=== PATIENT | male | born 1935 | race Caucasian/White ===

== ENCOUNTER 2017-08-18 19:23 | Emergency (ER) | payer MEDICARE ==
--- NOTE | 2017-08-18 19:50 | EDM.PDOC ---
ED HPI GENERAL MEDICAL PROBLEM - General Chief Complaint: General Stated Complaint: FELL CHEST HEAD AND RT KNEE Time Seen by Provider: 08/18/17 19:23 Source of Information: Reports: Patient, Family (son) History Limitations: Reports: No Limitations - History of Present Illness INITIAL COMMENTS - FREE TEXT/NARRATIVE: 82 y.o.w.m came with his son the ED after he fell over an object at home onto his head, chest and right knee. No LOC. Pt is on Coumadin S/O cardiac bypass surgery. His INR level will be checked tomorrow. INR lefl was therapeutic since surgery. Pt denies chest pain/discomfort, noticed a minor bruise at his right anterior knee but is ambulating fine. He noticed a minor bruise at his right forehead. No other acute medical issue. BP 151/52 Pulse 65 RR 18 Pulse ox 99% on RA Temp 36.8 Onset Date: 08/18/17 Onset Time: 18:35 Duration: Minutes:, Improving Location: Reports: Head, Chest, Lower Extremity, Right Quality: Reports: Ache (minor) Severity: Mild Improves with: Reports: Rest Worsens with: Reports: Other (palpation of forehead) Context: Reports: Other (Fall) Associated Symptoms: Reports: No Other Symptoms chest Pain Score (Numeric/FACES): 5 - Related Data Allergies Allergy/AdvReac Type Severity Reaction Status Date / Time No Known Allergies Allergy Verified 08/18/17 19:31 Home Meds: Home Meds . [Unable to Verify Home Med List] 08/18/17 [History] ED ROS GENERAL - Review of Systems Review Of Systems: See Below Constitutional: Reports: No Symptoms HEENT: Reports: Other (minor SQ hematoma right forehead) Respiratory: Reports: No Symptoms Cardiovascular: Reports: No Symptoms Endocrine: Reports: No Symptoms GI/Abdominal: Reports: No Symptoms : Reports: No Symptoms Musculoskeletal: Reports: No Symptoms Skin: Reports: No Symptoms Neurological: Reports: No Symptoms Psychiatric: Reports: No Symptoms Hematologic/Lymphatic: Reports: No Symptoms Immunologic: Reports: No Symptoms ED EXAM, GENERAL - Physical Exam Exam: See Below Exam Limited By: No Limitations General Appearance: Alert, WD/WN, No Apparent Distress Eye Exam: Bilateral Eye: Normal Inspection Ears: Normal External Exam Ear Exam: Bilateral Ear: Auricle Normal Nose: Normal Inspection Throat/Mouth: Normal Inspection, Normal Lips, Normal Oropharynx, Normal Voice, No Airway Compromise Head: Facial Swelling, Facial Tenderness (right forehead, minor 1x1 inch) Neck: Normal Inspection, Supple, Non-Tender, Full Range of Motion Respiratory/Chest: No Respiratory Distress, Lungs Clear, Normal Breath Sounds, No Accessory Muscle Use, Chest Non-Tender Cardiovascular: Normal Peripheral Pulses, Regular Rate, Rhythm, No Edema, No Gallop, No JVD Peripheral Pulses: 1+: Radial (L) GI/Abdominal: Normal Bowel Sounds, Soft, Non-Tender, No Organomegaly, No Abnormal Bruit, No Mass, Pelvis Stable (Male) Exam: No Hernia Rectal (Males) Exam: Deferred Back Exam: Normal Inspection, Full Range of Motion Extremities: Normal Inspection, Normal Range of Motion, Non-Tender, No Pedal Edema, Normal Capillary Refill Neurological: Alert, Oriented, CN II-XII Intact, Normal Cognition, Normal Gait, No Motor/Sensory Deficits Psychiatric: Normal Affect, Normal Mood Skin Exam: Warm, Dry, Other (SQ hematoma right forehead, minor) Lymphatic: No Adenopathy Course - Vital Signs Text/Narrative:: 82 y.o.w.m came with his son the ED after he fell over an object at home onto his head, chest and right knee. No LOC. Pt is on Coumadin S/O cardiac bypass surgery. His INR level will be checked tomorrow. INR lefl was therapeutic since surgery. Pt denies chest pain/discomfort, noticed a minor bruise at his right anterior knee but is ambulating fine. He noticed a minor bruise at his right forehead. No other acute medical issue. BP 151/52 Pulse 65 RR 18 Pulse ox 99% on RA Temp 36.8 PE: WNWD W M came with his son the [facility] ed after a fall and a minor bruise at his right forehead, pt is on Coumadin, no LOC Imaging: CT head: NAD as per RAD Impression: Right forehead SQ hematoma after a fall Tx: Ice to forehead Reexam: Improved Plan: D/C with instructions Last Recorded V/S: Last Vital Signs Temp 37.2 C 08/18/17 19:25 Pulse 66 08/18/17 19:25 Resp 18 08/18/17 19:25 BP 151/52 H 08/18/17 19:25 Pulse Ox 99 08/18/17 19:25 - Orders/Labs/Meds Orders: Active Orders 24 hr Category Date Time Status Head wo Cont [CT] Stat Exams 08/18/17 19:48 Taken Departure - Departure Time of Disposition: 20:55 Disposition: Home, Self-Care 01 Condition: Good Clinical Impression: Fall (on)(from) incline, initial encounter, Subcutaneous hematoma - Discharge Information Referrals: Ranjan Serrano MD [Primary Care Provider] - Forms: ED Department Discharge Additional Instructions: Please apply ice to the affected areas, please get your INR checked tomorrow as scheduled, please follow up, come back if your symptoms get worse acutely - My Orders Last 24 Hours: My Active Orders 08/18/17 19:48 Head wo Cont [CT] Stat - Assessment/Plan Last 24 Hours: My Active Orders 08/18/17 19:48 Head wo Cont [CT] Stat
== END 2017-08-18 21:05 | disposition home or self-care (01) ==
LOC: FB.ED 19:23
DX: S00.83XA Contusion of other part of head, initial encounter (principal); W19.XXXA Unspecified fall, initial encounter
CPT/HCPCS: 70450; 99284

== ENCOUNTER 2018-06-03 10:08 | Emergency (ER) | payer MEDICARE ==
--- NOTE | 2018-06-03 10:21 | EDM.PDOC ---
ED HPI GENERAL MEDICAL PROBLEM - General Stated Complaint: CHEST PAIN Time Seen by Provider: 06/03/18 10:08 Source of Information: Reports: Patient, EMS History Limitations: Reports: No Limitations - History of Present Illness INITIAL COMMENTS - FREE TEXT/NARRATIVE: 82 y.o.w.f with a H/O CLL, came to the ed with chest pain when he is lifting his the help her to dress her. Pt locates the pain to his anterior chest wall. As per son, NTG helps his pain. Pt received [facility] [employer] from [facility] [employer] [facility]. No N/V/D or dizziness, no diaphoresis or any other acute medical issues. BP 101/44 Pulse 91 RR 16 Pulse ox 98% on RA Onset Date: 05/27/18 Onset Time: 07:00 Duration: Intermittent Location: Reports: Chest Quality: Reports: Dull, Same as Previous Episode Severity: Mild Improves with: Reports: Rest Worsens with: Reports: Movement Associated Symptoms: Reports: Other (pain at his ant chest wall only if he lifts his . ) - Related Data Allergies Allergy/AdvReac Type Severity Reaction Status Date / Time No Known Allergies Allergy Verified 08/18/17 19:31 Home Meds: Home Meds . [Unable to Verify Home Med List] 08/18/17 [History] Past Medical History Cardiovascular History: Reports: High Cholesterol, Hypertension - Past Surgical History Cardiovascular Surgical History: Reports: Coronary Artery Bypass Social & Family History - Caffeine Use Caffeine Use: Reports: None ED ROS GENERAL - Review of Systems Review Of Systems: See Below Constitutional: Reports: No Symptoms HEENT: Reports: No Symptoms Respiratory: Reports: No Symptoms Cardiovascular: Reports: No Symptoms Endocrine: Reports: No Symptoms GI/Abdominal: Reports: No Symptoms : Reports: No Symptoms Musculoskeletal: Reports: Muscle Pain (at chest) Skin: Reports: No Symptoms Neurological: Reports: No Symptoms Psychiatric: Reports: No Symptoms Hematologic/Lymphatic: Reports: No Symptoms Immunologic: Reports: No Symptoms ED EXAM, GENERAL - Physical Exam Exam: See Below Exam Limited By: No Limitations General Appearance: Alert, WD/WN, Mild Distress Eye Exam: Bilateral Eye: Normal Inspection Ears: Normal External Exam Ear Exam: Bilateral Ear: Auricle Normal Nose: Normal Inspection, Normal Mucosa Throat/Mouth: Normal Inspection, Normal Lips, Normal Voice, No Airway Compromise Head: Atraumatic, Normocephalic Neck: Normal Inspection, Supple Respiratory/Chest: No Respiratory Distress, Lungs Clear, Normal Breath Sounds Cardiovascular: Normal Peripheral Pulses, Regular Rate, Rhythm, No Edema, No Gallop, No JVD, No Murmur Peripheral Pulses: 2+: Carotid (R) GI/Abdominal: Normal Bowel Sounds, Soft, Non-Tender, No Organomegaly, No Mass, Pelvis Stable (Male) Exam: Deferred Rectal (Males) Exam: Deferred Back Exam: Normal Inspection, Full Range of Motion Extremities: Normal Inspection, Normal Range of Motion, Non-Tender Neurological: Alert, Oriented, CN II-XII Intact Psychiatric: Normal Affect, Normal Mood Skin Exam: Warm, Dry, Intact, Normal Color, No Rash Lymphatic: No Adenopathy EKG INTERPRETATION EKG Date: 06/03/18 Time: 10:30 Rhythm: NSR Rate (Beats/Min): 89 [place]: Normal P-Wave: Present QRS: LBBB ST-T: Normal QT: Normal Comparison: NA - No Prior EKG Course - Vital Signs Text/Narrative:: 82 y.o.w.f with a H/O CLL, came to the ed with chest pain when he is lifting his the help her to dress her. Pt locates the pain to his anterior chest wall. As per son, NTG helps his pain. Pt received [employer] from the EMS crew. No N/V/D or dizziness, no diaphoresis or any other acute medical issues. BP 101/44 Pulse 91 RR 16 Pulse ox 98% on RA PE: WNWD W M in no acute distress, tender ant chest wall Imaging: CXR: NAD Labs: WBC 27K HGB 10.3 GFR 57 BUN 23 Cr 1.3 Alk phos 247 Troponin: 0.028 Impression: atypical chest pain Tx: ASA Reexam: Improved Plan: D/C with instructions Last Recorded V/S: Last Vital Signs Temp 36.7 C 06/03/18 10:15 Pulse 89 06/03/18 10:15 Resp 16 06/03/18 10:15 BP 101/44 L 06/03/18 10:15 Pulse Ox 98 06/03/18 10:15 - Orders/Labs/Meds Orders: Active Orders 24 hr Category Date Time Status Blood Culture x2 Reflex Set [OM.PC] Urgent Oth 06/03/18 11:52 Ordered Transfuse PRBC [Transfuse Red Blood Cells] [COMM] Stat Oth 06/03/18 12:45 Ordered EKG 12 Lead [EK] Routine Ther 06/03/18 10:20 Ordered Labs: Laboratory Tests 06/03/18 06/03/18 06/03/18 Range/Units 10:40 10:40 10:40 WBC 27.4 H (4.5-12.0) X10-3/uL RBC 3.12 L (4.30-5.75) x10(6)uL Hgb 10.3 L (11.5-15.5) g/dL Hct 31.0 (30.0-51.3) % MCV 99.2 H (80-96) fL MCH 33.0 (27.7-33.6) pg MCHC 33.3 (32.2-35.4) g/dL RDW 13.5 (11.5-15.5) % Plt Count 149 (125-369) X10(3)uL MPV 8.5 (7.4-10.4) fL Add Manual Diff Yes Neutrophils % (Manual) 12 L (46-82) % Lymphocytes % (Manual) 86 H (13-37) % Monocytes % (Manual) 2 L (4-12) % Sodium 140 (135-145) mmol/L Potassium 4.2 (3.5-5.3) mmol/L Chloride 103 (100-110) mmol/L Carbon Dioxide 27 (21-32) mmol/L BUN 23 H (7-18) mg/dL Creatinine 1.3 (0.70-1.30) mg/dL Est Cr Clr Drug Dosing TNP Estimated GFR (MDRD) 53 L (>60) BUN/Creatinine Ratio 17.7 (9-20) Glucose 219 H (80-116) mg/dL Lactic Acid (0.4-2.2) mmol/L Calcium 10.0 (8.6-10.2) mg/dL Total Bilirubin 0.9 (0.1-1.3) mg/dL Direct Bilirubin 0.28 H (0.10-0.20) mg/dL AST 24 (5-25) IU/L ALT 42 H (12-36) U/L Alkaline Phosphatase 247 H (56-112) IU/L Troponin I 0.029 (<0.017-0.056) ng/mL Total Protein 6.6 (6.0-8.0) g/dL Albumin 3.3 (3.2-4.6) g/dL Amylase (25-115) U/L Urine Color (YELLOW) Urine Appearance (CLEAR) Urine pH (5.0-6.5) Ur Specific [place] (1.010-1.025) Urine Protein (NEGATIVE) mg/dL Urine Glucose (UA) (NEGATIVE) mg/dL Urine Ketones (NEGATIVE) mg/dL Urine Occult Blood (NEGATIVE) Urine Nitrite (NEGATIVE) Urine Bilirubin (NEGATIVE) Urine Urobilinogen (NEGATIVE) mg/dL Ur Leukocyte Esterase (NEGATIVE) Urine WBC (0) Ur Squamous Epith Cells (NS,R,O) Urine Bacteria (NS) Blood Type Gel Antibody Screen Crossmatch 06/03/18 06/03/18 06/03/18 Range/Units 10:40 11:00 12:18 WBC (4.5-12.0) X10-3/uL RBC (4.30-5.75) x10(6)uL Hgb (11.5-15.5) g/dL Hct (30.0-51.3) % MCV (80-96) fL MCH (27.7-33.6) pg MCHC (32.2-35.4) g/dL RDW (11.5-15.5) % Plt Count (125-369) X10(3)uL MPV (7.4-10.4) fL Add Manual Diff Neutrophils % (Manual) (46-82) % Lymphocytes % (Manual) (13-37) % Monocytes % (Manual) (4-12) % Sodium (135-145) mmol/L Potassium (3.5-5.3) mmol/L Chloride (100-110) mmol/L Carbon Dioxide (21-32) mmol/L BUN (7-18) mg/dL Creatinine (0.70-1.30) mg/dL Est Cr Clr Drug Dosing Estimated GFR (MDRD) (>60) BUN/Creatinine Ratio (9-20) Glucose (80-116) mg/dL Lactic Acid 2.1 (0.4-2.2) mmol/L Calcium (8.6-10.2) mg/dL Total Bilirubin (0.1-1.3) mg/dL Direct Bilirubin (0.10-0.20) mg/dL AST (5-25) IU/L ALT (12-36) U/L Alkaline Phosphatase (56-112) IU/L Troponin I (<0.017-0.056) ng/mL Total Protein (6.0-8.0) g/dL Albumin (3.2-4.6) g/dL Amylase 28 (25-115) U/L Urine Color Yellow (YELLOW) Urine Appearance Clear (CLEAR) Urine pH 5.0 (5.0-6.5) Ur Specific [place] 1.010 (1.010-1.025) Urine Protein Negative (NEGATIVE) mg/dL Urine Glucose (UA) Normal (NEGATIVE) mg/dL Urine Ketones Negative (NEGATIVE) mg/dL Urine Occult Blood Negative (NEGATIVE) Urine Nitrite Negative (NEGATIVE) Urine Bilirubin Negative (NEGATIVE) Urine Urobilinogen Normal (NEGATIVE) mg/dL Ur Leukocyte Esterase Negative (NEGATIVE) Urine WBC 0-5 (0) Ur Squamous Epith Cells Occasional (NS,R,O) Urine Bacteria Few H (NS) Blood Type Gel Antibody Screen Crossmatch 06/03/18 06/03/18 Range/Units 12:45 13:43 WBC (4.5-12.0) X10-3/uL RBC (4.30-5.75) x10(6)uL Hgb (11.5-15.5) g/dL Hct (30.0-51.3) % MCV (80-96) fL MCH (27.7-33.6) pg MCHC (32.2-35.4) g/dL RDW (11.5-15.5) % Plt Count (125-369) X10(3)uL MPV (7.4-10.4) fL Add Manual Diff Neutrophils % (Manual) (46-82) % Lymphocytes % (Manual) (13-37) % Monocytes % (Manual) (4-12) % Sodium (135-145) mmol/L Potassium (3.5-5.3) mmol/L Chloride (100-110) mmol/L Carbon Dioxide (21-32) mmol/L BUN (7-18) mg/dL Creatinine (0.70-1.30) mg/dL Est Cr Clr Drug Dosing Estimated GFR (MDRD) (>60) BUN/Creatinine Ratio (9-20) Glucose (80-116) mg/dL Lactic Acid (0.4-2.2) mmol/L Calcium (8.6-10.2) mg/dL Total Bilirubin (0.1-1.3) mg/dL Direct Bilirubin (0.10-0.20) mg/dL AST (5-25) IU/L ALT (12-36) U/L Alkaline Phosphatase (56-112) IU/L Troponin I (<0.017-0.056) ng/mL Total Protein (6.0-8.0) g/dL Albumin (3.2-4.6) g/dL Amylase (25-115) U/L Urine Color (YELLOW) Urine Appearance (CLEAR) Urine pH (5.0-6.5) Ur Specific [place] (1.010-1.025) Urine Protein (NEGATIVE) mg/dL Urine Glucose (UA) (NEGATIVE) mg/dL Urine Ketones (NEGATIVE) mg/dL Urine Occult Blood (NEGATIVE) Urine Nitrite (NEGATIVE) Urine Bilirubin (NEGATIVE) Urine Urobilinogen (NEGATIVE) mg/dL Ur Leukocyte Esterase (NEGATIVE) Urine WBC (0) Ur Squamous Epith Cells (NS,R,O) Urine Bacteria (NS) Blood Type Cancelled Gel Antibody Screen Cancelled Crossmatch See Detail See Detail Meds: Medications Discontinued Medications Generic Name Dose Route Start Last Admin Trade Name Xanderq PRN Reason Stop Dose Admin Sodium Chloride 250 mls @ 100 mls/hr 06/03/18 12:45 Normal Saline IV ASDIRECTED JOSÉ Departure - Departure Time of Disposition: 13:25 Disposition: Home, Self-Care 01 Condition: Good Clinical Impression: Atypical chest pain Instructions: Nonspecific Chest Pain, [id number] Referrals: Ranjan Serrano MD [Primary Care Provider] - Forms: ED Department Discharge Additional Instructions: Please f/u with your PMD, take tylenol/advil for pain, come back if your symptoms get worse acutely - My Orders Last 24 Hours: My Active Orders 06/03/18 10:20 EKG 12 Lead [EK] Routine 06/03/18 11:52 Blood Culture x2 Reflex Set [OM.PC] Urgent 06/03/18 12:45 Transfuse PRBC [Transfuse Red Blood Cells] [COMM] Stat - Assessment/Plan Last 24 Hours: My Active Orders 06/03/18 10:20 EKG 12 Lead [EK] Routine 06/03/18 11:52 Blood Culture x2 Reflex Set [OM.PC] Urgent 06/03/18 12:45 Transfuse PRBC [Transfuse Red Blood Cells] [COMM] Stat
[2018-06-03] MEDS ORDERED: Sodium Chloride 0.9% 250 ML IV SCH (12:45)
--- NOTE | 2018-06-03 13:19 | CR ---
INDICATION: Chest pain. CHEST: A portable AP upright view of the chest was obtained 06/03/18 - no comparisons. The heart appears somewhat enlarged, emphasized by the AP positioning. Evidence of previous median sternotomy is noted. Overlying EKG leads are noted. 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 Degenerative changes and impingement suggested at the right shoulder joint. Upper lung field pulmonary vasculature is somewhat prominent, raising question of mild or early CHF. However, no definite active infiltrate or effusion was seen. 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 MTDD
== END 2018-06-03 13:41 | disposition home or self-care (01) ==
LOC: FB.ED 10:08
DX: R07.89 Other chest pain (principal); I10 Essential (primary) hypertension; Z95.1 Presence of aortocoronary bypass graft
CPT/HCPCS: 36415; 51702; 71045; 80048; 80076; 81001; 82150; 83605; 84484; 85025; 93005; 99285

== ENCOUNTER 2019-05-21 10:29 | Inpatient (IN) | payer MEDICARE ==
--- NOTE | 2019-05-21 11:14 | EDM.PDOC ---
ED HPI GENERAL MEDICAL PROBLEM - General Chief Complaint: Neurological Problem Stated Complaint: HIGH BLOOD SUGAR, CONFUSED, FALLS Time Seen by Provider: 05/21/19 11:10 Source of Information: Reports: Patient, Family (Patient's son and daughter-in- law) History Limitations: Reports: Altered Mental Status (Patient has altered mental status) - History of Present Illness INITIAL COMMENTS - FREE TEXT/NARRATIVE: 83-year-old male who according to the son has been becoming more confused and less active over the past week. He apparently was seen last week by Dr. Serrano secondary to low blood counts and also for a kidney issue. The son is unsure if he had an infection or if he was placed on any medication for this but he was supposed to have his blood counts rechecked again this coming week. Today, however, he has fallen twice. One time was at 4 a.m. today and the other time was at 8 AM. These were unwitnessed falls and the patient cannot really tell me anything about these falls except that he did fall and he is aware that he fell. The patient is a very limited historian because he is disoriented to time and situation. According to the family members that are here, the patient was unable to determine what he was to do to get out of a chair and then what he was to do after getting out of the chair and he needed pretty maximal assistance for any standing and he was unable to attempt to walk. No reports of vomiting. No reports of fever. No reports of cough or difficulty breathing or nasal congestion. Patient denies any pain at present. He rates his pain as a 0/ 10. He tells me that tills well and he does not want or need to be here. He continually asked me and the nursing staff if he is ready to go back home. He lives in an assisted living facility ([facility]) with some assistance but mostly does things on his own. The patient is chronically anticoagulated on Coumadin and he supposedly takes his own medications but there is some concern that over the past week he has not been taking his medications appropriately. He also has been sleeping more and has been not eating or drinking as much as normal. I am unable to get any further history. There are no other associated signs or symptoms. There are no other modifying factors. 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: Other (see below) (Nothing) - Related Data Allergies Allergy/AdvReac Type Severity Reaction Status Date / Time No Known Allergies Allergy Verified 05/21/19 11:22 Home Meds: Home Meds Acetaminophen 500 mg PO BID 05/21/19 [History] Allopurinol [Zyloprim] 100 mg PO DAILY 05/21/19 [History] Calcium Citrate/Vitamin D3 [Calcium Cit 315-Vit D3 200 Cpt] 1 tab PO BIDMEALS [History] Clopidogrel [Plavix] 75 mg PO DAILY 05/21/19 [History] Cyanocobalamin (Vitamin B-12) [B-12] 1,000 mcg PO DAILY 05/21/19 [History] Ferrous Fumarate/Vitamin C [Vitron-C] 2 tab PO BID 05/21/19 [History] Glimepiride 2 mg PO 17 05/21/19 [History] Glimepiride 4 mg PO DAILY 05/21/19 [History] Isosorbide Mononitrate [Isosorbide Mononitrate ER] 30 mg PO DAILY 05/21/19 [ History] Losartan [Cozaar] 50 mg PO DAILY 05/21/19 [History] Melatonin 5 mg PO BEDTIME 05/21/19 [History] Niacin 500 mg PO TIDMEALS 05/21/19 [History] Nitroglycerin 0.4 mg SL ASDIRECTED PRN 05/21/19 [History] Omeprazole 20 mg PO DAILY 05/21/19 [History] Sennosides [Senna] 8.6 mg PO DAILY PRN 05/21/19 [History] SitaGLIPtin [Januvia] 100 mg PO DAILY 05/21/19 [History] Tamsulosin [Flomax] 0.4 mg PO DAILY 05/21/19 [History] Torsemide 10 mg PO Q48H 05/21/19 [History] atorvaSTATin [Lipitor] 80 mg PO BEDTIME 05/21/19 [History] metFORMIN [Glucophage] 1,000 mg PO BIDMEALS 05/21/19 [History] Past Medical History Cardiovascular History: Reports: Afib (On chronic anticoagulation with Coumadin) , CAD, High Cholesterol, Hypertension Endocrine/Metabolic History: Reports: Diabetes, Type II Oncologic (Cancer) History: Reports: Leukemia (CLL) - Past Surgical History Cardiovascular Surgical History: Reports: Coronary Artery Bypass, Coronary Artery Stent Musculoskeletal Surgical History: Reports: Knee Replacement, Shoulder Replacement Social & Family History - Tobacco Use Smoking Status *Q: Never Smoker - Caffeine Use Caffeine Use: Reports: None - Alcohol Use Alcohol Use History: Yes Days Per Week of Alcohol Use: 7 Number of Drinks Per Day: 1 Total Drinks Per Week: 7 - Recreational Drug Use Recreational Drug Use: No - Living Situation & Occupation Living situation: Reports: Assisted Living Occupation: Retired ED ROS GENERAL - Review of Systems Review Of Systems: Unable To Obtain Reason Not Obtained: Confused. Patient is unreliable - Physical Exam Exam: See Below Exam Limited By: No Limitations General Appearance: Alert, Lethargic, Thin, Other (Seems very weak all over) Eye Exam: Bilateral Eye: EOMI, PERRL, Other (The sclera are muddy) Ears: Normal External Exam, Hearing Grossly Normal Nose: Normal Inspection, Normal Mucosa, No Blood Throat/Mouth: Normal Voice, No Airway Compromise, Other (Dry mucous membranes) Head Exam: Atraumatic, Normocephalic Neck: Normal Inspection, Supple, Non-Tender, Full Range of Motion Respiratory/Chest: No Respiratory Distress, Lungs Clear, Normal Breath Sounds, No Accessory Muscle Use, Chest Non-Tender Cardiovascular: No JVD, No Murmur, Irregularly Irregular GI/Abdominal: Normal Bowel Sounds, Soft, Non-Tender, No Mass Neuro Exam (Abbreviated): CN II-XII Intact, No Motor/Sensory Deficits, Confused , Other (Easily falls asleep. Less alert.) Back Exam: Normal Inspection, Full Range of Motion Extremities: Normal Inspection, Normal Range of Motion, Normal Capillary Refill , Pedal Edema Skin Exam: Warm, Dry, Intact, Normal Color, No Rash EKG INTERPRETATION EKG Date: 05/21/19 Time: 11:15 Rhythm: A-Fib Rate (Beats/Min): 81 [place]: LAD-Left [place] Deviation P-Wave: Absent QRS: LBBB ST-T: Other (Flattened laterally) QT: Prolonged (QTc) Comparison: Other: (Compared to EKG performed on 2018 there is T-wave flattening in V5 and V6 that was not present and this could represent lead placement.) Course - Vital Signs Last Recorded V/S: Last Vital Signs Temp 36.5 C 05/21/19 10:40 Pulse 84 05/21/19 10:40 Resp 19 05/21/19 10:40 BP 126/69 05/21/19 10:40 Pulse Ox 97 05/21/19 10:40 - Orders/Labs/Meds Orders: Active Orders 24 hr Category Date Time Status Admission Status [Patient Status] [ADT] Routine ADT 05/21/19 13:13 Ordered Cardiac Monitoring [RC] .As Directed Care 05/21/19 13:13 Ordered EKG Documentation Completion [RC] ASDIRECTED Care 05/21/19 11:29 Active Chest 1V Frontal [CR] Stat Exams 05/21/19 11:26 Taken Head wo Cont [CT] Stat Exams 05/21/19 11:26 Taken TYPE AND SCREEN [BBK] Stat Lab 05/21/19 11:50 Received UA W/MICROSCOPIC [URIN] Stat Lab 05/21/19 11:26 Ordered Sodium Chloride 0.9% [Saline Flush] Med 05/21/19 11:26 Active 10 ml FLUSH ASDIRECTED PRN Peripheral IV Insertion Adult [OM.PC] Routine Oth 05/21/19 11:26 Ordered EKG 12 Lead [EK] Routine Ther 05/21/19 11:26 Ordered Medication Orders Sodium Chloride (Saline Flush) 10 ml FLUSH ASDIRECTED PRN PRN Reason: Keep Vein Open Last Admin: 05/21/19 11:32 Dose: 10 ml Labs: Laboratory Tests 05/21/19 05/21/19 05/21/19 Range/Units 11:50 11:50 11:50 WBC 95.8 H* (4.5-12.0) X10-3/uL RBC 1.99 L (4.30-5.75) x10(6)uL Hgb 7.0 L (13.5-17.8) g/dL Hct 19.6 L* D (30.0-51.3) % MCV 98.9 H (80-96) fL MCH 35.4 H (27.7-33.6) pg MCHC 35.8 H (32.2-35.4) g/dL RDW 17.7 H (11.5-15.5) % Plt Count 248 (125-369) X10(3)uL MPV 6.9 L (7.4-10.4) fL Add Manual Diff Yes Neutrophils % (Manual) 15 L (46-82) % Lymphocytes % (Manual) 85 H (13-37) % Poikilocytosis Few Anisocytosis Few PT 19.4 H (8.7-11.1) INR 2.01 H (0.89-1.13) Sodium 142 (135-145) mmol/L Potassium 4.0 (3.5-5.3) mmol/L Chloride 106 (100-110) mmol/L Carbon Dioxide 24 (21-32) mmol/L BUN 36 H D (7-18) mg/dL Creatinine 1.2 (0.70-1.30) mg/dL Est Cr Clr Drug Dosing 39.86 mL/min Estimated GFR (MDRD) 58 L (>60) BUN/Creatinine Ratio 30.0 H (9-20) Glucose 256 H (80-116) mg/dL Lactic Acid (0.4-2.0) mmol/L Calcium 8.3 L (8.6-10.2) mg/dL Magnesium 1.7 L (1.8-2.5) mg/dL Total Bilirubin 3.5 H (0.1-1.3) mg/dL AST 40 H D (5-25) IU/L ALT 44 H (12-36) U/L Alkaline Phosphatase 186 H (56-112) IU/L Troponin I (<0.017-0.056) ng/mL C-Reactive Protein (0.5-0.9) mg/dL Total Protein 5.5 L (6.0-8.0) g/dL Albumin 3.3 (3.2-4.6) g/dL Globulin 2.2 g/dL Albumin/Globulin Ratio 1.5 05/21/19 05/21/19 Range/Units 11:50 11:50 WBC (4.5-12.0) X10-3/uL RBC (4.30-5.75) x10(6)uL Hgb (13.5-17.8) g/dL Hct (30.0-51.3) % MCV (80-96) fL MCH (27.7-33.6) pg MCHC (32.2-35.4) g/dL RDW (11.5-15.5) % Plt Count (125-369) X10(3)uL MPV (7.4-10.4) fL Add Manual Diff Neutrophils % (Manual) (46-82) % Lymphocytes % (Manual) (13-37) % Poikilocytosis Anisocytosis PT (8.7-11.1) INR (0.89-1.13) Sodium (135-145) mmol/L Potassium (3.5-5.3) mmol/L Chloride (100-110) mmol/L Carbon Dioxide (21-32) mmol/L BUN (7-18) mg/dL Creatinine (0.70-1.30) mg/dL Est Cr Clr Drug Dosing mL/min Estimated GFR (MDRD) (>60) BUN/Creatinine Ratio (9-20) Glucose (80-116) mg/dL Lactic Acid 1.3 (0.4-2.0) mmol/L Calcium (8.6-10.2) mg/dL Magnesium (1.8-2.5) mg/dL Total Bilirubin (0.1-1.3) mg/dL AST (5-25) IU/L ALT (12-36) U/L Alkaline Phosphatase (56-112) IU/L Troponin I 0.038 (<0.017-0.056) ng/mL C-Reactive Protein 1.6 H (0.5-0.9) mg/dL Total Protein (6.0-8.0) g/dL Albumin (3.2-4.6) g/dL Globulin g/dL Albumin/Globulin Ratio Meds: Medications Generic Name Dose Route Start Last Admin Trade Name Freq PRN Reason Stop Dose Admin Sodium Chloride 10 ml 05/21/19 11:26 05/21/19 11:32 Saline Flush FLUSH 10 ml ASDIRECTED PRN Administration Keep Vein Open Discontinued Medications Generic Name Dose Route Start Last Admin Trade Name Freq PRN Reason Stop Dose Admin Sodium Chloride 500 mls @ 999 mls/hr 05/21/19 11:31 05/21/19 11:38 Normal Saline IV 05/21/19 12:01 999 mls/hr .BOLUS ONE Administration - Radiology Interpretation Free Text/Narrative:: Portable chest x-ray shows no acute disease. CT scan of head without contrast shows a new 4 cm area of low density in the left parietal occipital area consistent with a subacute/evolving infarct. There is no intracranial hemorrhage. This is per the radiologist. - Re-Assessments/Exams Free Text/Narrative Re-Assessment/Exam: 05/21/19 13:05: Patient with left parietal occipital stroke and severe anemia. He has received normal saline 500 mL as a bolus and has not been able to produce a urine as yet. A bladder scan showed 300 mL in his bladder. He does appear to be somewhat dehydrated as well. With his and his severe anemia and his dehydration with the confusion and inability to ambulate, he will need admission. This cannot be safely accomplished as an outpatient. He will need at least a 2 midnight hospital stay to accomplish this plan of care. I will discuss the patient's case with Dr. Meier, hospitalist at [facility] , in regard to the patient being admitted. I have typed and screened the patient. 05/21/19 13:15: I have discussed the patient's case with Dr. Meier and he will admit the patient. I have discussed this with the son and with the daughter-in- law and with the patient and they are all in agreement with the plans for admission. I also discussed CODE STATUS with the son and the patient and the patient wishes to be a FULL CODE. Departure - Departure Time of Disposition: 13:20 Disposition: Admitted As Inpatient 65 Condition: Fair Clinical Impression: Severe anemia, Acute encephalopathy CVA (cerebral vascular accident) Qualifiers: CVA mechanism: thrombosis Precerebral and cerebral artery: middle cerebral artery Laterality of affected vessel: left Qualified Code(s): I63.312 - Cerebral infarction due to thrombosis of left middle cerebral artery - Discharge Information Referrals: Ranjan Serrano MD [Primary Care Provider] - Forms: ED Department Discharge Sepsis Event Note - Evaluation Sepsis Screening Result: No Definite Risk - Focused Exam Vital Signs: Vital Signs Temp Pulse Resp BP Pulse Ox 05/21/19 10:40 36.5 C 84 19 126/69 97 Date Exam was Performed: 05/21/19 Time Exam was Performed: 13:15 - My Orders Last 24 Hours: My Active Orders 05/21/19 11:26 Chest 1V Frontal [CR] Stat Head wo Cont [CT] Stat UA W/MICROSCOPIC [URIN] Stat Sodium Chloride 0.9% [Saline Flush] 10 ml FLUSH ASDIRECTED PRN Peripheral IV Insertion Adult [OM.PC] Routine EKG 12 Lead [EK] Routine 05/21/19 11:29 EKG Documentation Completion [RC] ASDIRECTED 05/21/19 11:50 TYPE AND SCREEN [BBK] Stat 05/21/19 13:13 Admission Status [Patient Status] [ADT] Routine Cardiac Monitoring [RC] .As Directed - Assessment/Plan Last 24 Hours: My Active Orders 05/21/19 11:26 Chest 1V Frontal [CR] Stat Head wo Cont [CT] Stat UA W/MICROSCOPIC [URIN] Stat Sodium Chloride 0.9% [Saline Flush] 10 ml FLUSH ASDIRECTED PRN Peripheral IV Insertion Adult [OM.PC] Routine EKG 12 Lead [EK] Routine 05/21/19 11:29 EKG Documentation Completion [RC] ASDIRECTED 05/21/19 11:50 TYPE AND SCREEN [BBK] Stat 05/21/19 13:13 Admission Status [Patient Status] [ADT] Routine Cardiac Monitoring [RC] .As Directed
[2019-05-21] MEDS ORDERED: Sodium Chloride 0.9% 500 ML IV ONE (11:31)
[2019-05-21] MEDS: Sodium Chloride 0.9% 10 ML Syringe FLUSH PRN (11:32)
[2019-05-21] MEDS ORDERED: Magnesium Hydroxide 400 MG/5 ML Susp 30 ML Cup PO PRN (15:13)
[2019-05-21] MEDS ORDERED: Bisacodyl 5 MG Tab PO PRN (15:13)
[2019-05-21] MEDS ORDERED: Nitroglycerin 0.4 MG Tab.SL SL PRN (15:18)
[2019-05-21] MEDS ORDERED: Sennosides 8.6 MG Tab PO PRN (15:18)
[2019-05-21] MEDS ORDERED: Torsemide 20 MG Tab PO SCH (15:30)
[2019-05-21] MEDS: metFORMIN 1,000 MG Tab PO SCH (18:10)
[2019-05-21] MEDS: Melatonin 3 MG Tab PO SCH (20:23)
[2019-05-21] MEDS: Acetaminophen 500 MG Tab PO SCH (20:24)
[2019-05-21] MEDS ORDERED: atorvaSTATin 40 MG Tab PO SCH (21:00)
[2019-05-21] MEDS ORDERED: Non-Formulary Medication 1 Each (Melatonin [Melatonin] 5 MG) PO SCH (21:00)
[2019-05-21] MEDS ORDERED: FERROUS FUMARATE PO SCH (21:00)
[2019-05-21] MEDS ORDERED: VITAMIN C PO SCH (21:00)
[2019-05-22] MEDS ORDERED: Acetaminophen 325 MG Tab PO PRN (05:34)
[2019-05-22] MEDS ORDERED: Glimepiride 4 MG Tab PO SCH (08:00)
--- NOTE | 2019-05-22 08:51 | HP ---
ADMISSION DATE: 05/21/2019 CHIEF COMPLAINT: CVA, anemia, and leukocytosis. HISTORY OF PRESENT ILLNESS: Mr. Polk is an 83-year-old man from [facility] with a history of CLL. He has been living at [facility] by himself after his was admitted to the skilled nursing in the last year. Over the past few days, he has been having increasing weakness and falling. He does not admit this, but he has significant dementia and does not remember enough. He was seen by Dr. Serrano in the clinic last week with blood work; however, because of these falls and confusion with weakness, he was taken to [facility], where he was evaluated by Dr. Menard and is now admitted to acute care. CT scan of the head showed a new thrombotic parieto-occipital area CVA on the left. PAST MEDICAL HISTORY: CLL; chronic AFib, on anticoagulation; hyperuricemia; type 2 diabetes; ASHD; hypertension; GERD; chronic constipation; BPH; congestive heart failure. OPERATIONS: He is status post CABG and coronary artery stenting, knee and shoulder replacements. MEDICATIONS: 1. Torsemide 80 mg every 48 hours. 2. Tamsulosin 0.4 mg at bedtime. 3. Sitagliptin 100 mg daily. 4. Senokot-S 1 daily p.r.n. 5. Nitroglycerin sublingual p.r.n. 6. Metformin 1000 mg b.i.d. 7. Melatonin 5 mg at bedtime. 8. Milk of magnesia p.r.n. 9. Losartan 50 mg daily. 10.Isosorbide mononitrate 30 mg daily. 11.Glimepiride 4 mg daily. 12.Ferrous fumarate 2 b.i.d. 13.Docusate 1 b.i.d. p.r.n. 14.Vitamin B12 1000 mcg p.o. daily. 15.Plavix 75 mg daily. 16.Dulcolax 5 mg p.r.n. 17.Atorvastatin 80 mg at bedtime. 18.Allopurinol 100 mg daily. 19.Tylenol p.r.n. ALLERGIES: None. HABITS: Nonsmoker. He says that he drinks a gin and tonic at bedtime, but not clear if he still does it or not or if this is his memory. FAMILY AND SOCIAL HISTORY: The patient is and lives at [facility]. He states that he lived in [place] for many years before he and his moved home to live near with their son. They have 1 son in [place] who is with the [facility] [facility] [employer]. He has several grandchildren and great grandchildren. REVIEW OF SYSTEMS: GENERAL: No seizures or witnessed syncope. He did fall, however, and has exhibited an increased level of weakness and confusion. HEENT: No recent changes in hearing or vision. No reports of cough, fever, or chills. He denies chest pain, dyspnea, abdominal pain, diarrhea, swelling, or skin rash. He apparently does have problems with constipation. PHYSICAL EXAMINATION: GENERAL: He is alert, but obviously confused and forgetful. VITAL SIGNS: Blood pressure 110/58, pulse 80 and irregular in atrial fibrillation pattern, respirations 20, O2 saturation 93% on room air, temperature 99.4, weight 163 pounds. SKIN: Anicteric, warm, dry. No rashes noted. HEENT: Shows pupils to be equal and reactive. Oropharynx is clear. Mouth dry. LUNGS: Have fine rales bilaterally. No focal consolidation. HEART: Regular with a 2/6 systolic murmur over the precordium. Carotids are brisk with no bruits heard. ABDOMEN: Normal bowel sounds. Soft and nontender. EXTREMITIES: Show palpable dorsalis pedis pulses. Trace edema at the malleoli. LABORATORY DATA: CT showed a thrombotic CVA, left parieto-occipital cerebrum. White count 95,000, hemoglobin 7. INR 2.01. BUN 36, creatinine 1.2, glucose 256, magnesium 1.7. AST 40, ALT 44, CRP 1.6. Urinalysis shows greater than 12 urobilinogen, 5-10 white cells, sent for culture. ASSESSMENT: An 83-year-old man with: 1. Likely new onset left parieto-occipital cerebrovascular accident, posterior cerebellar circulation, with fall. 2. Chronic dementia. 3. Coronary artery disease status post bypass stents and mild congestive heart failure. 4. Type 2 diabetes. 5. Chronic essential hypertension. 6. Benign prostatic hyperplasia. PLAN: He is admitted to the hospital. We will repeat his laboratory work. He is typed and screened for potential transfusion. Plan to follow up closely. /[id number] ANDI/BARB
[2019-05-22] MEDS ORDERED: Tamsulosin 0.4 MG Cap.ER PO SCH (09:00)
[2019-05-22] MEDS ORDERED: Torsemide 20 MG Tab PO SCH (09:00)
[2019-05-22] MEDS ORDERED: Clopidogrel 75 MG Tab PO SCH (09:00)
[2019-05-22] MEDS ORDERED: Cyanocobalamin (Vitamin B12) 1,000 MCG Tab PO SCH (09:00)
[2019-05-22] MEDS ORDERED: Allopurinol 100 MG Tab PO SCH (09:00)
[2019-05-22] MEDS ORDERED: Losartan 50 MG Tab PO SCH (09:00)
[2019-05-22] MEDS ORDERED: Isosorbide Mononitrate 30 MG Tab.ER PO SCH (09:00)
[2019-05-22] MEDS: Glimepiride 4 MG Tab PO SCH ×2 (09:18→18:38)
[2019-05-22] MEDS: metFORMIN 1,000 MG Tab PO SCH ×2 (09:21→18:38)
[2019-05-22] MEDS: Acetaminophen 500 MG Tab PO SCH (09:21)
[2019-05-22] MEDS: Insulin Lispro 100 Unit/ML 3 ML KwikPen SUBCUT SCH ×4 (09:28→22:29)
[2019-05-22] MEDS ORDERED: Sodium Chloride 0.9% 250 ML IV SCH (10:15)
--- NOTE | 2019-05-22 11:07 | CR ---
INDICATION: Weakness. CHEST, ONE VIEW: Portable AP upright view of the chest 05/21/19 was compared with 06/02/18 and again revealed the heart to be enlarged, the aorta tortuous with calcification. Overlying EKG leads are noted. Reverse total shoulder arthroplasty again noted on the left. Upper lung field pulmonary vasculature and interstitial markings are prominent compatible with CHF and interstitial lung edema although other interstitial disease could be present. IMPRESSION: CHF with interstitial lung edema. MTDD
--- NOTE | 2019-05-22 11:11 | PN ---
DATE SEEN: 05/22/2019 HISTORY: Qamar is an 83-year-old man brought in through the emergency room yesterday because of increasing weakness, lethargy, and confusion. He has a history of chronic atrial fibrillation, coronary artery disease, and dementia. In the emergency room, a CT of his head was done and he was found to have a new thrombotic CVA in the left parieto-occipital area. He was also found to have extremely high white blood count at 95,000 and hemoglobin of 7. Previous white count was 35,000 as an outpatient approximately 10 days prior. He is examined this morning, sitting in his chair. He is confused and asks the same question over and over again, consistent with his longstanding dementia. PHYSICAL EXAMINATION: GENERAL: He is awake and alert. VITAL SIGNS: Blood pressure 95/56, pulse 114 and irregular, respirations normal, temperature 99, O2 saturation 95% on room air. Weight 160 pounds. SKIN: Shows no rash. Mouth is dry. LUNGS: Fine rales at the bases. HEART: Regular with a 2-3/6 systolic murmur over the aortic area. ABDOMEN: Soft, nontender. EXTREMITIES: Showed no edema. NEUROLOGIC: Reveals symmetric strength at the upper and lower extremities and no dysarthria. LABORATORY: INR this morning 2.74. Glucose 304. CBC pending. ASSESSMENT: 1. Left thrombotic cerebrovascular accident. 2. Chronic lymphocytic leukemia with severe leukocytosis and anemia. 3. Chronic atrial fibrillation, on anticoagulation. 4. Type 2 diabetes with hyperglycemia. 5. Mild pyuria, question urinary tract infection. PLAN: He will have physical and occupational therapy assessments today. We will continue his oral medications. We will add sliding scale insulin to control his blood sugars and follow up closely. We will continue to provide palliative care measures for Mr. Polk's underlying dementia. We will reassess the need for transfusions after CBC has returned and continue his warfarin for the atrial fibrillation and thrombotic stroke. I anticipate another 48 to 72 hours of acute hospital stay followed by rehab if necessary. /[id number] ANDI/BARB
[2019-05-22] MEDS ORDERED: Warfarin Sliding Scale PO SCH (16:00)
[2019-05-22] MEDS ORDERED: Aluminum Hydroxide/Magnesium Hydroxide Susp 30 ML Cup PO ONE (19:15)
[2019-05-22] MEDS: Morphine 2 MG/ML Syringe IVPUSH ONE ×2 (19:30→19:36)
[2019-05-22] MEDS: Sodium Chloride 0.9% 10 ML Syringe FLUSH PRN ×4 (19:30→22:50)
[2019-05-22] MEDS ORDERED: Morphine 2 MG/ML Syringe IVPUSH ONE ×2 (20:56→22:02)
[2019-05-22] MEDS ORDERED: methylPREDNISolone Sodium Succinate 125 MG/2 ML SDV IVPUSH SCH (21:00)
--- NOTE | 2019-05-23 02:06 | DISCH ---
DISCHARGE DATE: 05/22/2019 PRIMARY FINAL DIAGNOSES: 1. Acute severe hemolytic anemia. 2. Thrombotic left parieto-occipital cerebrovascular accident. 3. Demand angina with subendocardial myocardial infarction. 4. Chronic lymphocytic leukemia. 5. Dementia, likely Alzheimer's type. 6. Chronic essential hypertension. 7. Type 2 diabetes. 8. Benign prostatic hyperplasia. SUMMARY: Mr. Polk is an 83-year-old man with CLL who came in because of weakness and declining condition. CT scan revealed a left thrombotic parieto- occipital CVA with no significant extremity or facial motor findings. His balance, however, was poor. On admission, his white count was found to be 95,000 and hemoglobin 7.0. INR 2.01. Platelets 248,000 with 15 neutrophils and 85 lymphocytes. By the next morning, his white count had increased to 104,000, hemoglobin dropped to 6.2, and his platelets remained normal at 240. INR was 2.74. He remained in atrial fibrillation with somewhat elevated blood sugars in the 300 range. He was typed and cross-matched and was found to have a rare antibody that required send out to [facility] to identify. On the evening of 05/22, he began to complain of substernal chest pain. He was given oxygen, IV morphine, and because of low blood pressure in 80/50 range, he was not given any nitroglycerin. Urgent transfusion was required and he was started on best match A positive type specific blood available to us. Troponin done during his episode of chest pain came back elevated at 0.454. LDH 518, total bilirubin 6.0, direct 1.6 and indirect 4.4. Consultation was held with Dr. Mcpherson at [facility] in [place] and arrangements are made for ambulance transfer to [place] for further treatment. His family was in attendance and the serious nature of his condition was discussed with them. /[id number] ANDI/BARB
[2019-05-23] MEDS: Acetaminophen 500 MG Tab PO SCH (02:56)
[2019-05-23] MEDS: Melatonin 3 MG Tab PO SCH (02:56)
== END 2019-05-22 22:45 | DRG 64 ==
LOC: FB.ED 10:29 → FB.MS 13:13
PROVIDERS: ADMIT Family Medicine; ATTEND Family Medicine
DX: I63.312 Cerebral infarction due to thrombosis of left middle cerebral artery (principal); D64.9 Anemia, unspecified; G93.40 Encephalopathy, unspecified; E86.0 Dehydration; I48.91 Unspecified atrial fibrillation; I21.4 Non-ST elevation (NSTEMI) myocardial infarction; I10 Essential (primary) hypertension; I48.20 Chronic atrial fibrillation, unspecified; C91.10 Chronic lymphocytic leukemia of B-cell type not having achieved remission; D59.9 Acquired hemolytic anemia, unspecified; R53.1 Weakness; I11.0 Hypertensive heart disease with heart failure; I50.9 Heart failure, unspecified; Z96.619 Presence of unspecified artificial shoulder joint; E79.0 Hyperuricemia without signs of inflammatory arthritis and tophaceous disease; Z79.02 Long term (current) use of antithrombotics/antiplatelets; E11.9 Type 2 diabetes mellitus without complications; I25.10 Atherosclerotic heart disease of native coronary artery without angina pectoris; K21.9 Gastro-esophageal reflux disease without esophagitis; N40.0 Benign prostatic hyperplasia without lower urinary tract symptoms; Z96.611 Presence of right artificial shoulder joint; Z96.612 Presence of left artificial shoulder joint; W19.XXXA Unspecified fall, initial encounter; F03.90 Unspecified dementia, unspecified severity, without behavioral disturbance, psychotic disturbance, mood disturbance, and anxiety; E78.00 Pure hypercholesterolemia, unspecified; Z96.659 Presence of unspecified artificial knee joint; R82.81 Pyuria; Z79.01 Long term (current) use of anticoagulants; Z95.1 Presence of aortocoronary bypass graft; Z95.5 Presence of coronary angioplasty implant and graft; Z79.899 Other long term (current) drug therapy; Z79.84 Long term (current) use of oral hypoglycemic drugs; R40.2413 Glasgow coma scale score 13-15, at hospital admission
CPT/HCPCS: 36415; 36430; 70450; 71045; 80053; 81001; 82247; 82248; 82272; 82962; 83010; 83605; 83615; 83735; 84484; 85025; 85045; 85610; 86140; 86850; 86880; 86900; 86901; 86920; 86922; 87804; 87804-59; 93005; 94760; 99285-25; A9270-GY; J1815; J2270; J2930; J7040; J7050; P9016